=== PATIENT | male | born 1955 | race Caucasian/White ===

== ENCOUNTER 2022-08-23 15:30 | Emergency (ER) | payer MEDICARE, MEDICAID ==
[2022-08-23] MEDS ORDERED: Sodium Chloride 0.9% 10 ML Syringe FLUSH PRN (16:03)
[2022-08-23] MEDS ORDERED: Albuterol/Ipratropium 3.0-0.5 MG/3 ML Neb Soln NEB ONE (16:05)
[2022-08-23 18:12] LABS: CORONAVIRUS COVID-19 NAA NEGATIVE (NEGATIVE)
[2022-08-23] MEDS ORDERED: Doxycycline Monohydrate 100 MG Cap PO ONE (18:28)
[2022-08-23] MEDS ORDERED: Albuterol 6.7 GM Inhaler INH ONE (18:30)
[2022-08-23] MEDS ORDERED: Amoxicillin/Clavulanate K 875-125 MG Tab PO ONE (18:33)
[2022-08-23 20:47] VITALS: BP 154/83; PULSE 100
== END 2022-08-23 20:48 ==
LOC: JD.ED 15:30
DX: J40 Bronchitis, not specified as acute or chronic (principal); I11.0 Hypertensive heart disease with heart failure; I50.9 Heart failure, unspecified; I48.91 Unspecified atrial fibrillation; E78.00 Pure hypercholesterolemia, unspecified; M19.90 Unspecified osteoarthritis, unspecified site; E66.9 Obesity, unspecified; Z68.44 Body mass index [BMI] 60.0-69.9, adult; Z88.1 Allergy status to other antibiotic agents; Z79.82 Long term (current) use of aspirin; Z79.899 Other long term (current) drug therapy; Z79.01 Long term (current) use of anticoagulants; Z20.822 Contact with and (suspected) exposure to COVID-19
CPT/HCPCS: 0241U; 36415; 71045; 80053; 84484; 85025; 93005; 94640; 99285; J3490; 93010; 99284; J7620-GY